=== PATIENT | male | born 1940 | race Caucasian/White ===

== ENCOUNTER 2019-06-30 18:35 | Observation (INO) | payer MEDICARE, OTHER ==
[~2019-06-30] VITALS: Ht 180.3 cm; Wt 87.1 kg
[~2019-06-30 18:35] MED LIST: ASPI-496 PO; FURO-93 PO; HYDR-3245 PO; IRON1TAB60 PO; LEVO137T3 PO; MULT-257 PO; MULT1CAP19 PO; POTA10TA11 PO; SIMV20TA19 PO; VITA1TAB19 PO; WARF1TAB74 PO
--- NOTE | 2019-06-30 19:10 | NUR ---
NEUROS GROSSLY INTACT. SB ON MONITOR. LUNGS CTAB. SPEAKING FULL SENT. A&0X4 GCS 15. DL LUA IN ROOM FOR EVAL. CALL HARDING IN REACH CTM.
[2019-06-30] MEDS ORDERED: CARV10CP PO (19:15)
[2019-06-30] MEDS ORDERED: ATOR40TA PO (19:15)
[2019-06-30] MEDS ORDERED: LISI2.5T PO (19:15)
[2019-06-30] MEDS ORDERED: SODIUM CHLORIDE FLUSH 10ML SYR IVF ONE (19:30)
[2019-06-30] MEDS ORDERED: MECLIZINE CHEWABLE 25 MG TAB PO ONE (19:30)
[2019-06-30] MEDS ORDERED: ONDANSETRON ODT 4 MG PO ONE (19:30)
[2019-06-30] MEDS ORDERED: ONDANSETRON ODT 4 MG ONE (19:36)
[2019-06-30] MEDS ORDERED: MECLIZINE CHEWABLE 25 MG TAB ONE (19:37)
--- NOTE | 2019-06-30 19:40 | NUR ---
MEDS PER ABIGAIL MIRANDA IN ROOM FOR EVAL.
[2019-06-30 19:45] LABS: BASOPHILS # (AUTO) 0.06 x10^3/uL (0-0.1); BASOPHILS % (AUTO) 0 % (0-1); EOSINOPHILS # (AUTO) 0.12 x10^3/uL (0-0.4); EOSINOPHILS % (AUTO) 1 % (1-7); LYMPHOCYTES # (AUTO) 1.36 x10^3/uL (1-3.4); LYMPHOCYTES % (AUTO) 10 % (22-44); MD NO; MEAN CORPUSCULAR HGB CONC 33.9 g/dL (33.2-36.2); MEAN CORPUSCULAR VOLUME 94.4 fL (81-97); MEAN PLATELET VOLUME 8.3 fL (7.4-10.4); MONOCYTES # (AUTO) 0.41 x10^3/uL (0.2-0.8); MONOCYTES % (AUTO) 3 % (2-9); NEUTROPHILS # (AUTO) 12.01 x10^3/uL (1.8-6.8); NEUTROPHILS % (AUTO) 86 % (42-75); PLATELET COUNT 239 x10^3/uL (130-400); RED BLOOD COUNT 4.54 x10^6/uL (4.38-5.82); RED CELL DISTRIBUTION WIDTH 13.4 % (9.4-14.8)
[2019-06-30 19:50] LABS: ALANINE AMINOTRANSFERASE 21 U/L (12-78); ALBUMIN 3.6 g/dL (3.4-5.0); ANION GAP 5 mmol/L (5-15); CALCIUM 8.8 mg/dL (8.5-10.1); CHLORIDE 100 mmol/L (98-107)
[2019-06-30 19:55] LABS: ALKALINE PHOSPHATASE 118 U/L (45-117); BILIRUBIN,TOTAL 0.6 mg/dL (0.2-1.0); CREATININE 1.16 mg/dL (0.7-1.3); TOTAL PROTEIN 6.4 g/dL (6.4-8.2); TROPONIN I < 0.015 ng/mL (0.000-0.045)
--- NOTE | 2019-06-30 20:19 | NUR ---
scans neg tsh pending. as
--- NOTE | 2019-06-30 21:22 | NUR ---
pt up for recheck. sts feels better after meds, all sx resolved. daughter at bedside, updated. as
--- NOTE | 2019-06-30 21:29 | NUR ---
caryn made aware of pt gonzalo. plan for admit. as
--- NOTE | 2019-06-30 21:33 | NUR ---
eddy in room to speak w/ pt. as
--- NOTE | 2019-06-30 22:10 | NUR ---
report to olga lidia rodrigez.
--- NOTE | 2019-06-30 22:10 | NUR ---
received report from JENNIFER Copeland.
--- NOTE | 2019-06-30 22:45 | NUR ---
bed assigned. report to JENNIFER Saldana.
[2019-06-30 23:15] VITALS: BP 147/66
[2019-06-30] MEDS ORDERED: CARV6.25 PO (23:19)
[2019-06-30 23:20] VITALS: BP 147/66
[2019-07-01] VITALS (10 sets, daily range): BP systolic 118–156; BP diastolic 64–82
[2019-07-01] MEDS ORDERED: DOCUSATE 100 MG CAPSULE PO PRN (00:30)
[2019-07-01] MEDS ORDERED: BISACODYL 10 MG SUPP PR PRN (00:30)
[2019-07-01] MEDS ORDERED: ACETAMINOPHEN 325 MG TABLET PO PRN (00:30)
[2019-07-01] MEDS ORDERED: PROMETHAZINE 25 MG/ML, 1ML IM PRN (00:30)
[2019-07-01] MEDS ORDERED: POLYETHYLENE GLYCOL 17 GM PACKET PO PRN (00:30)
[2019-07-01] MEDS ORDERED: ONDANSETRON ODT 4 MG PO PRN (00:30)
[2019-07-01] MEDS ORDERED: ONDANSETRON 2MG/ML, 2ML IVPush PRN (00:30)
[2019-07-01] MEDS ORDERED: OXYcodone IR 5MG TABLET PO PRN (00:30)
[2019-07-01] MEDS ORDERED: hydrALAzine 20 MG/ML, 1ML IVPush PRN (00:30)
[2019-07-01] MEDS: HEPARIN 5,000 UNITS/ML, 1ML SQ SCH ×3 (00:31→17:33)
[2019-07-01] MEDS: SODIUM CHLORIDE 0.9% 1,000 ML IV SCH ×2 (00:31→10:08)
[2019-07-01 00:56] LABS: FREE T4 (FREE THYROXINE) 1.42 ng/dL (0.76-1.46)
[2019-07-01] MEDS: LEVOTHYROXINE 137 MCG TABLET PO SCH (05:23)
[2019-07-01 07:15] LABS: BASOPHILS # (AUTO) 0.02 x10^3/uL (0-0.1); BASOPHILS % (AUTO) 0 % (0-1); EOSINOPHILS # (AUTO) 0.09 x10^3/uL (0-0.4); EOSINOPHILS % (AUTO) 1 % (1-7); LYMPHOCYTES # (AUTO) 2.27 x10^3/uL (1-3.4); LYMPHOCYTES % (AUTO) 30 % (22-44); MD NO; MEAN CORPUSCULAR HEMOGLOBIN 31.8 pg (27.5-34.5); MEAN CORPUSCULAR HGB CONC 32.9 g/dL (33.2-36.2); MEAN CORPUSCULAR VOLUME 96.5 fL (81-97); MEAN PLATELET VOLUME 8.2 fL (7.4-10.4); MONOCYTES # (AUTO) 0.55 x10^3/uL (0.2-0.8); MONOCYTES % (AUTO) 7 % (2-9); NEUTROPHILS # (AUTO) 4.64 x10^3/uL (1.8-6.8); NEUTROPHILS % (AUTO) 61 % (42-75); PLATELET COUNT 246 x10^3/uL (130-400); RED BLOOD COUNT 4.85 x10^6/uL (4.38-5.82); RED CELL DISTRIBUTION WIDTH 13.1 % (9.4-14.8)
[2019-07-01 07:22] LABS: ALBUMIN 3.4 g/dL (3.4-5.0); ANION GAP 7 mmol/L (5-15); CALCIUM 8.5 mg/dL (8.5-10.1); CHLORIDE 102 mmol/L (98-107)
[2019-07-01 07:27] LABS: ALANINE AMINOTRANSFERASE 20 U/L (12-78); ALKALINE PHOSPHATASE 119 U/L (45-117); BILIRUBIN,TOTAL 0.7 mg/dL (0.2-1.0); CHOL/HDL RATIO 3.1; CHOLESTEROL, TOTAL 141 mg/dL (140-239); CREATININE 0.95 mg/dL (0.7-1.3); HDL CHOLESTEROL (DIRECT) 45 mg/dL (40-60); TOTAL PROTEIN 6.7 g/dL (6.4-8.2); TRIGLYCERIDES 127 mg/dL (50-200); VLDL CHOLESTEROL 25 mg/dL (0-25)
[2019-07-01 07:28] LABS: HDL CHOL % 32 % (26-37); LDL CHOLESTEROL,CALCULATED 71 mg/dL (54-169); LDL/HDL RATIO 1.6 (0.5-3.0)
[2019-07-01 07:29] LABS: HEMOGRAM NOTE RECHECKED
[2019-07-01 08:29] LABS: MICROSCOPIC NOT IND
[2019-07-01 08:33] LABS: CULTURE INDICATED? NO
[2019-07-01] MEDS ORDERED: TEMPLATE NON-FORMULARY MED. (Iron,Carbonyl/Vit C/Vit B12/Fa** (Iron 100 Plus Tablet**) 1 T PO SCH (09:00)
[2019-07-01] MEDS ORDERED: POTASSIUM CHLORIDE 40 MEQ in SODIUM CHLORIDE 0.9% 500 ML IV ONE (09:30)
[2019-07-01] MEDS: MULTIVITS,STRESS FORMULA 1 TABLET PO SCH (09:49)
[2019-07-01] MEDS: ASPIRIN 81 MG TABLET EC PO SCH (09:49)
[2019-07-01] MEDS ORDERED: ATORVASTATIN 40 MG TABLET PO SCH (21:00)
[2019-07-02] MEDS: HEPARIN 5,000 UNITS/ML, 1ML SQ SCH ×2 (00:27→08:44)
[2019-07-02 00:30] VITALS: BP 131/72
[2019-07-02] MEDS: LEVOTHYROXINE 137 MCG TABLET PO SCH (05:19)
[2019-07-02 08:10] VITALS: BP 143/80
[2019-07-02] MEDS: ASPIRIN 81 MG TABLET EC PO SCH (08:44)
[2019-07-02] MEDS: MULTIVITS,STRESS FORMULA 1 TABLET PO SCH (08:44)
[2019-07-02] MEDS ORDERED: POTASSIUM CHLORIDE 20 MEQ TAB.ER.PRT PO ONE (09:30)
== END 2019-07-02 12:00 | disposition home or self-care (01) ==
LOC: ED 21:59 → INTOOBSV 22:47 → EDIP 22:47 → 5SO 23:09 → DCLOUNGE 07-02 11:58
PROVIDERS: ADMIT Internal Medicine; ATTEND Internal Medicine
DX: R00.1 Bradycardia, unspecified (principal); R42 Dizziness and giddiness; R11.2 Nausea with vomiting, unspecified; I10 Essential (primary) hypertension; E78.5 Hyperlipidemia, unspecified; E03.9 Hypothyroidism, unspecified; I51.89 Other ill-defined heart diseases; I35.0 Nonrheumatic aortic (valve) stenosis; Z95.2 Presence of prosthetic heart valve; Z79.899 Other long term (current) drug therapy
CPT/HCPCS: 36415; 70450; 70551; 71045; 80053; 80061; 81003; 83036; 83735; 84439; 84443; 84484; 85025; 93005; 93880; 96360; 96361; 96372; 97162; 97165; 99285; G0378; J1644; J3480; J7030; J7040; Q0162